=== PATIENT | male | born 1990 | race Two or more races ===

== ENCOUNTER 2023-12-24 11:34 | Emergency (ER) | payer MEDICAID, OTHER ==
[~2023-12-24] VITALS: Ht 172.7 cm; Wt 59.0 kg
[2023-12-24 13:36] VITALS: BP 131/86; PULSE 86; RESP 20; TEMP 98.9; O2SAT 98
[2023-12-24] MEDS ORDERED: NAPR-746 PO (14:57)
[2023-12-24] MEDS ORDERED: AUG875T PO (14:57)
[2023-12-24] MEDS ORDERED: METH4PAK PO (14:57)
[2023-12-24] MEDS: HYDROcodone-ACET 5/325MG TAB PO ONE (15:04)
[2023-12-24] MEDS: cefTRIAXone SOD 1,000 MG VL IM ONE (15:04)
== END 2023-12-24 15:19 | disposition home or self-care (01) ==
LOC: ER 11:34 → EDBD 11:34 → ER 15:16
DX: S02.2XXA Fracture of nasal bones, initial encounter for closed fracture (principal); S02.40DA Maxillary fracture, left side, initial encounter for closed fracture; Z79.899 Other long term (current) drug therapy; Y08.89XA Assault by other specified means, initial encounter; Y93.01 Activity, walking, marching and hiking; Y92.89 Other specified places as the place of occurrence of the external cause; Y99.8 Other external cause status
CPT/HCPCS: 70486; 96372; 99285; J0696